=== PATIENT | female | born 1960 | race Caucasian/White ===

== ENCOUNTER → 2017-08-14 | Outpatient (CLI) | payer OTHER, MEDICARE ==
--- NOTE | 2017-08-14 10:22 | RADIOLOGY REPORT PS360 ---
CHEST(2 VIEWS-NOT PORTABLE) HISTORY: Shortness of breath PULMONARY EMPHYSEMA ORDERING PHYSICIAN: Osman Harden APRN PATIENT AGE: 56 years COMPARISON: None available FINDINGS: The cardiomediastinal silhouette and pulmonary vascularity are within normal limits. Hyperinflation with hyper lucency consistent with COPD. There is increased density within the lingula and may be due to atelectasis or fibrosis versus infiltrate. There are no previous studies or comparison. The remaining lungs are clear. No acute bony anomalies. IMPRESSION: Opacification within the lingula which may be due to atelectasis or fibrosis versus infiltrate. Recommend follow-up to confirm resolution or stability
== END ==
LOC: RAD 08:47
DX: J43.9 Emphysema, unspecified (principal); R74.8 Abnormal levels of other serum enzymes